=== PATIENT | male | born 1960 | race Caucasian/White ===

== ENCOUNTER 2021-06-01 09:06 | Emergency (ER) | payer OTHER ==
[~2021-06-01] VITALS: Ht 172.7 cm; Wt 103.2 kg
[2021-06-01] MEDS ORDERED: HYDR-3490 PO (09:24)
[2021-06-01] MEDS ORDERED: MAGN400T2 PO (09:24)
[2021-06-01] MEDS ORDERED: POTA10808 PO (09:24)
[2021-06-01] MEDS ORDERED: ATEN100T PO (09:24)
[2021-06-01] MEDS ORDERED: AMLO1TAB25 PO (09:24)
[2021-06-01] MEDS ORDERED: LOSA100T45 PO (09:24)
[2021-06-01] MEDS ORDERED: LIDOCAINE 2% MDV 20ML VIAL SC ONE (10:10)
[2021-06-01] MEDS ORDERED: BOOSTRIX/ADACEL VACCINE (DIPHTH/PERTUSS/ACELL/TETANUS) 0.5ML SYR IM ONE (10:10)
[2021-06-01] MEDS ORDERED: BACITRACIN OINTMENT 30GM TUBE TOP STA (10:23)
[2021-06-01] MEDS ORDERED: NEOSPORIN OINT 0.9 GM PKT TOP ONE (10:30)
[2021-06-01 11:10] VITALS: BP 135/86
== END 2021-06-01 11:30 | disposition home or self-care (01) ==
LOC: M ED 09:06 → EDBD 09:06 → M ED 11:30
DX: S02.2XXA Fracture of nasal bones, initial encounter for closed fracture (principal); S01.81XA Laceration without foreign body of other part of head, initial encounter; W11.XXXA Fall on and from ladder, initial encounter; Y92.89 Other specified places as the place of occurrence of the external cause; Y99.0 Civilian activity done for income or pay; I10 Essential (primary) hypertension; E78.9 Disorder of lipoprotein metabolism, unspecified; Z79.899 Other long term (current) drug therapy